=== PATIENT | female | born 1945 | race Caucasian/White ===

== ENCOUNTER → 2019-06-08 | Outpatient (CLI) | payer MEDICARE, OTHER ==
[~2019-06-08] MED LIST: GADOBENATE DIMEGLUMINE 1 ML IV ONE
[2019-06-08 09:19] LABS: BLOOD UREA NITROGEN 14 mg/dL (7-26); BUN/CREATININE RATIO 19 (6-25); CREATININE, SERUM 0.73 mg/dL (0.57-1.11); EST GLOMERULAR FILTRATION RATE > 60 ML/MIN (60-)
--- NOTE | 2019-06-08 13:08 | Diagnostic Imaging Report ---
History: Follow-up glioma Comparison studies: Multiple MRI brain dating back to 10/08/2013, the most recent 09/13/2017 Technique: Pre-contrast: Sagittal T2; axial T1-IR, MPGR, DWI, T2 FLAIR Post-contrast: axial and coronal T1. Intravenous contrast: 13 cc of MultiHance Findings: Scalp: No abnormal signal. No masses. Bone marrow: Normal in signal intensity. Brain sulci: Mildly prominent. Ventricles: Mildly prominent . No hydrocephalus. Extra-axial: No masses, fluid collections or hemorrhage. Parenchyma: Scattered T2/FLAIR hyperintensity in the periventricular, deep and pontine white matter, nonspecific. Stable 7 mm enhancing lesion in the left frontoparietal centrum semiovale with unchanged adjacent FLAIR signal abnormality. No midline shift or mass effect. No other enhancing lesions. No hemorrhage, acute or chronic cortical vascular insults. Suprasellar region: No abnormalities. Craniocervical junction: No abnormalities. Patent foramen magnum. No Chiari one malformation.. Vessels: Normal flow-voids in the arteries and sinuses. Incidental findings: None IMPRESSION: 1. Stable subcentimeter enhancing lesion at the left frontoparietal centrum semiovale, unchanged since 2012. 2. No acute intracranial abnormality. 3. Moderate chronic microvascular ischemic changes of the white matter and mild diffuse volume loss Signed by: DR Romaine Stone M.D. on 06/08/2019 1:04 PM
== END ==
LOC: MRI 08:35
PROVIDERS: ATTEND Radiology Neuroradiology
DX: C71.9 Malignant neoplasm of brain, unspecified (principal)
CPT/HCPCS: 36415; 70553; 82565; 84520; A9577

== ENCOUNTER → 2022-07-27 | Outpatient (CLI) | payer MEDICARE, OTHER ==
[2022-07-27 12:20] LABS: CREATININE, SERUM 0.75 mg/dL (0.57-1.11)
== END ==
LOC: MRI 11:18
PROVIDERS: ATTEND Radiology Neuroradiology
DX: C71.9 Malignant neoplasm of brain, unspecified (principal); R42 Dizziness and giddiness
CPT/HCPCS: 36415; 70553; 82565; 84520